=== PATIENT | male | born 1955 | race Caucasian/White ===

== ENCOUNTER 2017-05-13 17:15 | Inpatient (IN) | payer MEDICARE, MEDICAID ==
[~2017-05-13] VITALS: Ht 193 cm; Wt 78.5 kg
[2017-05-13 18:36] LABS: ALBUMIN 3.3 g/dL (3.4-5.0); ANION GAP 7 mmol/L (5-15); CHLORIDE 92 mmol/L (98-107); CREATININE 0.73 mg/dL (0.7-1.3)
[2017-05-13 18:47] LABS: ALANINE AMINOTRANSFERASE 18 U/L (12-78); ALKALINE PHOSPHATASE 84 U/L (45-117); BILIRUBIN,TOTAL 0.7 mg/dL (0.2-1.0); TOTAL PROTEIN 7.3 g/dL (6.4-8.2)
[2017-05-13 18:50] LABS: BASOPHILS # (AUTO) 0.08 x10^3/uL (0-0.1); BASOPHILS % (AUTO) 1 % (0-1); EOSINOPHILS # (AUTO) 0.19 x10^3/uL (0-0.4); EOSINOPHILS % (AUTO) 2 % (1-7); LYMPHOCYTES # (AUTO) 1.33 x10^3/uL (1-3.4); LYMPHOCYTES % (AUTO) 13 % (22-44); MD NO; MEAN CORPUSCULAR HEMOGLOBIN 32.4 pg (27.5-34.5); MEAN CORPUSCULAR HGB CONC 34.1 g/dL (33.2-36.2); MEAN CORPUSCULAR VOLUME 94.9 fL (81-97); MEAN PLATELET VOLUME 7.4 fL (7.4-10.4); MONOCYTES # (AUTO) 0.89 x10^3/uL (0.2-0.8); MONOCYTES % (AUTO) 9 % (2-9); NEUTROPHILS # (AUTO) 7.64 x10^3/uL (1.8-6.8); NEUTROPHILS % (AUTO) 75 % (42-75); PLATELET COUNT 465 x10^3/uL (130-400); RED BLOOD COUNT 4.11 x10^6/uL (4.38-5.82); RED CELL DISTRIBUTION WIDTH 13.5 % (9.4-14.8)
[2017-05-13] MEDS ORDERED: SODIUM CHLORIDE FLUSH 10ML SYR IVF PRN (23:00)
[2017-05-13] MEDS ORDERED: POLYETHYLENE GLYCOL 17 GM PACKET PO PRN (23:30)
[2017-05-13] MEDS ORDERED: BISACODYL 10 MG SUPP PR PRN (23:30)
[2017-05-13] MEDS ORDERED: ONDANSETRON 2MG/ML, 2ML IVPush PRN (23:30)
[2017-05-14 00:31] VITALS: BP 196/108
[2017-05-14] MEDS: HEPARIN 5,000 UNITS/ML, 1ML SQ SCH ×3 (00:57→17:14)
[2017-05-14] MEDS: SODIUM CHLORIDE 0.9% 1,000 ML IV SCH ×2 (00:57→20:43)
[2017-05-14] MEDS: ACETAMINOPHEN 325 MG TABLET PO PRN ×2 (00:57→06:15)
[2017-05-14 05:41] LABS: BASOPHILS # (AUTO) 0.07 x10^3/uL (0-0.1); BASOPHILS % (AUTO) 1 % (0-1); EOSINOPHILS # (AUTO) 0.26 x10^3/uL (0-0.4); EOSINOPHILS % (AUTO) 3 % (1-7); LYMPHOCYTES % (AUTO) 18 % (22-44); MD NO; MEAN CORPUSCULAR HEMOGLOBIN 32.2 pg (27.5-34.5); MEAN CORPUSCULAR VOLUME 94.9 fL (81-97); MEAN PLATELET VOLUME 7.2 fL (7.4-10.4); MONOCYTES # (AUTO) 1.05 x10^3/uL (0.2-0.8); MONOCYTES % (AUTO) 14 % (2-9); NEUTROPHILS # (AUTO) 4.87 x10^3/uL (1.8-6.8); NEUTROPHILS % (AUTO) 64 % (42-75); PLATELET COUNT 420 x10^3/uL (130-400); RED BLOOD COUNT 3.89 x10^6/uL (4.38-5.82); RED CELL DISTRIBUTION WIDTH 13.4 % (9.4-14.8)
[2017-05-14 06:18] LABS: ALANINE AMINOTRANSFERASE 16 U/L (12-78); ANION GAP 6 mmol/L (5-15); CHLORIDE 95 mmol/L (98-107); CREATININE 0.66 mg/dL (0.7-1.3)
[2017-05-14 06:20] LABS: ALKALINE PHOSPHATASE 72 U/L (45-117); BILIRUBIN,TOTAL 0.5 mg/dL (0.2-1.0); TOTAL PROTEIN 6.5 g/dL (6.4-8.2)
[2017-05-14 06:48] VITALS: BP 133/86
[2017-05-14] MEDS: SENNA/DOCUSATE TABLET PO SCH (09:17)
[2017-05-14 14:37] LABS: CHLORIDE,URINE RANDOM 55 mmol/L; POTASSIUM,URINE RANDOM 16 mmol/L; SODIUM,URINE RANDOM 57 mmol/L
[2017-05-14 14:49] VITALS: BP 126/76
[2017-05-14 15:03] LABS: MICROSCOPIC NOT IND
[2017-05-14 15:09] LABS: CULTURE INDICATED? NO
[2017-05-14] MEDS ORDERED: ALBUTEROL SULFATE 2.5 MG/3 ML ONE (16:56)
[2017-05-14 19:24] VITALS: BP 113/71
[2017-05-14] MEDS: ALBUTEROL SULFATE 2.5 MG/3 ML NPPB SCH (20:00)
[2017-05-15] MEDS: HEPARIN 5,000 UNITS/ML, 1ML SQ SCH ×3 (00:44→17:03)
[2017-05-15 03:00] VITALS: BP 127/79
[2017-05-15 05:44] LABS: BASOPHILS # (AUTO) 0.08 x10^3/uL (0-0.1); BASOPHILS % (AUTO) 2 % (0-1); EOSINOPHILS # (AUTO) 0.16 x10^3/uL (0-0.4); EOSINOPHILS % (AUTO) 3 % (1-7); LYMPHOCYTES # (AUTO) 1.35 x10^3/uL (1-3.4); LYMPHOCYTES % (AUTO) 25 % (22-44); MD NO; MEAN CORPUSCULAR HEMOGLOBIN 32.1 pg (27.5-34.5); MEAN CORPUSCULAR HGB CONC 33.8 g/dL (33.2-36.2); MEAN CORPUSCULAR VOLUME 94.9 fL (81-97); MEAN PLATELET VOLUME 7.4 fL (7.4-10.4); MONOCYTES % (AUTO) 17 % (2-9); NEUTROPHILS # (AUTO) 2.83 x10^3/uL (1.8-6.8); NEUTROPHILS % (AUTO) 53 % (42-75); PLATELET COUNT 420 x10^3/uL (130-400); RED BLOOD COUNT 3.91 x10^6/uL (4.38-5.82); RED CELL DISTRIBUTION WIDTH 13.8 % (9.4-14.8)
[2017-05-15 05:52] LABS: ANION GAP 6 mmol/L (5-15); CHLORIDE 100 mmol/L (98-107)
[2017-05-15 05:55] LABS: ALANINE AMINOTRANSFERASE 18 U/L (12-78); ALKALINE PHOSPHATASE 75 U/L (45-117); BILIRUBIN,TOTAL 0.2 mg/dL (0.2-1.0); CREATININE 0.66 mg/dL (0.7-1.3); TOTAL PROTEIN 6.6 g/dL (6.4-8.2)
[2017-05-15] MEDS: ALBUTEROL SULFATE 2.5 MG/3 ML NPPB SCH ×4 (07:25→19:44)
[2017-05-15 09:00] VITALS: BP 128/82
[2017-05-15] MEDS ORDERED: FLU VACC QS2017-18 (36MOS+) UP/PF 0.5 ML IM-VACC ONE (09:00)
[2017-05-15] MEDS ORDERED: PNEUMOCOCCAL 23 VACCINE IM-VACC ONE (09:00)
[2017-05-15] MEDS: SENNA/DOCUSATE TABLET PO SCH (09:04)
[2017-05-15 14:00] VITALS: BP 120/81
[2017-05-15] MEDS: SODIUM CHLORIDE 0.9% 1,000 ML IV SCH (17:04)
[2017-05-15 19:58] VITALS: BP 140/90
[2017-05-16] MEDS: HEPARIN 5,000 UNITS/ML, 1ML SQ SCH ×3 (00:43→17:59)
[2017-05-16 01:52] VITALS: BP 131/76
[2017-05-16 06:05] LABS: BASOPHILS % (AUTO) 1 % (0-1); EOSINOPHILS # (AUTO) 0.19 x10^3/uL (0-0.4); EOSINOPHILS % (AUTO) 2 % (1-7); LYMPHOCYTES # (AUTO) 1.31 x10^3/uL (1-3.4); LYMPHOCYTES % (AUTO) 17 % (22-44); MD NO; MEAN CORPUSCULAR HGB CONC 33.9 g/dL (33.2-36.2); MEAN CORPUSCULAR VOLUME 94.5 fL (81-97); MONOCYTES # (AUTO) 1.19 x10^3/uL (0.2-0.8); MONOCYTES % (AUTO) 15 % (2-9); NEUTROPHILS # (AUTO) 4.99 x10^3/uL (1.8-6.8); NEUTROPHILS % (AUTO) 64 % (42-75); PLATELET COUNT 430 x10^3/uL (130-400); RED BLOOD COUNT 3.92 x10^6/uL (4.38-5.82); RED CELL DISTRIBUTION WIDTH 13.5 % (9.4-14.8)
[2017-05-16 06:08] LABS: ANION GAP 5 mmol/L (5-15); CALCIUM 9.4 mg/dL (8.5-10.1); CHLORIDE 97 mmol/L (98-107); CREATININE 0.75 mg/dL (0.7-1.3)
[2017-05-16] MEDS: ALBUTEROL SULFATE 2.5 MG/3 ML NPPB SCH ×4 (07:00→20:00)
[2017-05-16 09:10] VITALS: BP 173/99
[2017-05-16] MEDS: SENNA/DOCUSATE TABLET PO SCH (10:13)
[2017-05-16] MEDS ORDERED: LABETALOL 5MG/ML, 20ML IVPush PRN (10:30)
[2017-05-16] MEDS: SODIUM CHLORIDE 0.9% 1,000 ML IV SCH (13:00)
[2017-05-16 20:06] VITALS: BP 150/83
[2017-05-16] MEDS: ACETAMINOPHEN 325 MG TABLET PO PRN (21:04)
[2017-05-17] MEDS: HEPARIN 5,000 UNITS/ML, 1ML SQ SCH ×3 (01:18→17:23)
[2017-05-17] MEDS: ALBUTEROL SULFATE 2.5 MG/3 ML NPPB SCH ×5 (01:50→20:10)
[2017-05-17 02:25] VITALS: BP 149/79
[2017-05-17 05:58] LABS: CHLORIDE 97 mmol/L (98-107)
[2017-05-17 06:05] LABS: ANION GAP 6 mmol/L (5-15); CREATININE 0.76 mg/dL (0.7-1.3)
[2017-05-17 06:25] VITALS: BP 112/66
[2017-05-17] MEDS: SENNA/DOCUSATE TABLET PO SCH (09:38)
[2017-05-17] MEDS: SODIUM CHLORIDE 0.9% 1,000 ML IV SCH (09:43)
[2017-05-17 13:14] VITALS: BP 124/67
[2017-05-17 19:52] VITALS: BP 148/78
[2017-05-17] MEDS: DIVALPROEX 500 MG TAB.ER.24H PO SCH (21:40)
[2017-05-18] MEDS: HEPARIN 5,000 UNITS/ML, 1ML SQ SCH ×4 (01:00→17:07)
[2017-05-18 01:52] VITALS: BP 133/85
[2017-05-18 07:03] VITALS: BP 149/95
[2017-05-18] MEDS: SENNA/DOCUSATE TABLET PO SCH ×2 (08:35→10:48)
[2017-05-18] MEDS: ALBUTEROL SULFATE 2.5 MG/3 ML NPPB SCH (11:15)
[2017-05-18 12:28] VITALS: BP 147/95
[2017-05-18 20:00] VITALS: BP 114/64
[2017-05-18] MEDS: DIVALPROEX 500 MG TAB.ER.24H PO SCH (20:40)
[2017-05-19] MEDS: HEPARIN 5,000 UNITS/ML, 1ML SQ SCH ×3 (00:22→16:58)
[2017-05-19 01:30] VITALS: BP 133/80
[2017-05-19] MEDS: ACETAMINOPHEN 325 MG TABLET PO PRN (02:19)
[2017-05-19 05:01] LABS: BASOPHILS # (AUTO) 0.06 x10^3/uL (0-0.1); BASOPHILS % (AUTO) 1 % (0-1); EOSINOPHILS # (AUTO) 0.34 x10^3/uL (0-0.4); EOSINOPHILS % (AUTO) 6 % (1-7); LYMPHOCYTES # (AUTO) 1.56 x10^3/uL (1-3.4); LYMPHOCYTES % (AUTO) 25 % (22-44); MD NO; MEAN CORPUSCULAR HEMOGLOBIN 31.9 pg (27.5-34.5); MEAN CORPUSCULAR VOLUME 93.9 fL (81-97); MEAN PLATELET VOLUME 6.8 fL (7.4-10.4); MONOCYTES # (AUTO) 0.77 x10^3/uL (0.2-0.8); MONOCYTES % (AUTO) 13 % (2-9); NEUTROPHILS % (AUTO) 56 % (42-75); PLATELET COUNT 427 x10^3/uL (130-400); RED BLOOD COUNT 3.61 x10^6/uL (4.38-5.82); RED CELL DISTRIBUTION WIDTH 13.6 % (9.4-14.8)
[2017-05-19 05:05] LABS: ANION GAP 6 mmol/L (5-15); CALCIUM 8.9 mg/dL (8.5-10.1); CHLORIDE 99 mmol/L (98-107)
[2017-05-19 05:08] LABS: CREATININE 0.82 mg/dL (0.7-1.3)
[2017-05-19 07:49] VITALS: BP 132/89
[2017-05-19] MEDS: SENNA/DOCUSATE TABLET PO SCH (08:54)
[2017-05-19 13:54] VITALS: BP 117/73
[2017-05-19 17:48] VITALS: BP_SYST 140; BP_SYST 162; BP_DIAS 90; BP_DIAS 93
[2017-05-19 18:59] VITALS: BP 136/89
[2017-05-19] MEDS: DIVALPROEX 500 MG TAB.ER.24H PO SCH (20:28)
[2017-05-19] MEDS: ALBUTEROL SULFATE 2.5 MG/3 ML NPPB SCH (21:20)
[2017-05-20] MEDS: HEPARIN 5,000 UNITS/ML, 1ML SQ SCH ×3 (01:07→17:50)
[2017-05-20] MEDS ORDERED: DIPHENHYDRAMINE 50 MG CAPSULE ONE (03:37)
[2017-05-20] MEDS ORDERED: DIPHENHYDRAMINE 50 MG CAPSULE PO ONE (04:00)
[2017-05-20] MEDS: ALBUTEROL SULFATE 2.5 MG/3 ML NPPB SCH ×2 (05:48→10:00)
[2017-05-20 05:58] VITALS: BP 185/116
[2017-05-20 08:31] VITALS: BP 136/87
[2017-05-20] MEDS: SENNA/DOCUSATE TABLET PO SCH (08:36)
[2017-05-20] MEDS: ZIPRASIDONE 20MG CAPSULE PO SCH ×2 (13:13→17:49)
[2017-05-20] MEDS ORDERED: ZIPR20CA2 PO (17:50)
[2017-05-20] MEDS ORDERED: DIVA500T4 PO (17:50)
[2017-05-20 17:55] VITALS: BP_SYST 171; BP_SYST 173; BP_DIAS 114; BP_DIAS 117
[2017-05-20 19:26] VITALS: BP 150/85
[2017-05-20] MEDS: DIVALPROEX 500 MG TAB.ER.24H PO SCH (19:57)
== END 2017-05-20 21:11 | DRG 641 ==
LOC: ED 21:44 → 4NOR 05-14 00:21 → ED 05-14 00:24 → 4NOR 05-14 00:24 → 3E 05-19 17:31
PROVIDERS: ADMIT Hospitalist; ATTEND Hospitalist
DX: E87.1 Hypo-osmolality and hyponatremia (principal); E44.0 Moderate protein-calorie malnutrition; F23 Brief psychotic disorder; D64.9 Anemia, unspecified; E78.5 Hyperlipidemia, unspecified; F17.210 Nicotine dependence, cigarettes, uncomplicated; F31.9 Bipolar disorder, unspecified; I10 Essential (primary) hypertension; M10.9 Gout, unspecified; D47.3 Essential (hemorrhagic) thrombocythemia; Z60.2 Problems related to living alone; R62.7 Adult failure to thrive; Z23 Encounter for immunization; Z59.0 Homelessness; Z90.49 Acquired absence of other specified parts of digestive tract; Z81.8 Family history of other mental and behavioral disorders; Z68.21 Body mass index [BMI] 21.0-21.9, adult
CPT/HCPCS: 36415; 70450; 71010; 80048; 80053; 81003; 82436; 83930; 83935; 84133; 84295; 84300; 85025; 90686; 90732; 93005; 94640; 99285; J1644; J7613; 92523-GN; J7030

== ENCOUNTER 2017-05-30 02:39 | Emergency (ER) | payer MEDICARE, MEDICAID ==
[~2017-05-30] VITALS: Ht 188 cm; Wt 78.0 kg
[~2017-05-30 02:39] MED LIST: DIVA500T4 PO; ZIPR20CA2 PO
[2017-05-30 02:42] VITALS: BP 144/93
[2017-05-30] MEDS ORDERED: SPIR25TA3 PO (02:51)
[2017-05-30] MEDS ORDERED: LISI2.5T PO (02:51)
[2017-05-30] MEDS ORDERED: TIOT18CA INH (02:51)
[2017-05-30] MEDS ORDERED: INDO25CA PO (02:52)
== END 2017-05-30 03:39 | disposition home or self-care (01) ==
LOC: ED 03:27
DX: Z76.0 Encounter for issue of repeat prescription (principal); Z72.89 Other problems related to lifestyle; J45.909 Unspecified asthma, uncomplicated; Z88.8 Allergy status to other drugs, medicaments and biological substances; Z59.0 Homelessness
CPT/HCPCS: 99283